=== PATIENT | male | born 1965 | race Caucasian/White ===

== ENCOUNTER 2017-11-26 10:42 | Emergency (ER) | payer OTHER ==
[~2017-11-26] VITALS: Ht 180.3 cm; Wt 89.4 kg
[~2017-11-26 10:42] MED LIST: ACEASPCAF PO; ALBU90OI INH; ALBU90OI6 INH; ALBU90OI61 INH; AMLO10 PO; AMLO5 PO; ASPI81CH PO; ASPI81EC; ASPI81EC PO; AZIT250 PO; AZIT500 PO; BUDE10.22 INH; BUTASPCAF PO; CEPH500; CIPR500 PO; CLIN300 PO; CLOP75 PO; CODACE30; CODACE30 PO; CODGUAEL PO; CRUTCH3 USE; CYCL10 PO; DOXY100 PO; ELIQUIS2.5 MG; FAMO40 PO; FEBU40TA; FEBU40TA PO; FLUSAL2505 IH; FLUT.05NI; GUAI600T33 PO; HCTZ; HYDACE10B PO; HYDACE5 PO; HYDACE5325 PO; HYDCHL50; IBUP600 PO; IBUP800 PO; ISOMON30 PO; KETO10 PO; LEVSOD100; LEVSOD125 PO; LEVSOD150 PO; LEVSOD75; LISI10; LISI10 PO; LISI5; LORA.5 PO; LORA1 PO; LOSA50; LOSA50 PO; LOVA40; LOVA40 PO; METO25; METO25ER; METO25ER PO; MULVITA PO; MULVITMIND PO; Mucinex600 MG PO; NAPR500 PO; NITR.4SL SL; OMEP20ER; OMEP40CA12 PO; OXYACE5T PO; OXYACE7.5T PO; PRAV20 PO; PRED10 PO; PRED20 PO; PROM25 PO; Prednisone20 MG PO; RANI150 PO; ROPI1 PO; RXALBOI INH; RXHYD5325 PO; SIMV20; SUCR1 PO; SULTRIDS PO; TIOT18 IH; TIOT18 INH; TOBDEXOPSU OP; TOBR.3OPSO OP; TRAM50 PO; TRIHYD5075 PO; UNKNOWN ANTIBIOTIC; VARE1 PO; Zithromax250 MG PO
== END 2017-11-26 14:24 | disposition left against medical advice (07) ==
LOC: ER 10:42
DX: Z53.21 Procedure and treatment not carried out due to patient leaving prior to being seen by health care provider (principal)

== ENCOUNTER 2018-05-31 02:19 | Emergency (ER) | payer OTHER ==
[~2018-05-31] VITALS: Ht 180.3 cm; Wt 93.4 kg
[~2018-05-31 02:19] MED LIST changes: +ALBU90OI61 PO; +AMLO10; -AMLO10 PO; +BUDE10.22; -BUDE10.22 INH
== END 2018-05-31 05:37 | disposition home or self-care (01) ==
LOC: ER 02:19
DX: M25.531 Pain in right wrist (principal); I10 Essential (primary) hypertension; I25.10 Atherosclerotic heart disease of native coronary artery without angina pectoris; I25.2 Old myocardial infarction; E03.9 Hypothyroidism, unspecified; E78.00 Pure hypercholesterolemia, unspecified; F17.200 Nicotine dependence, unspecified, uncomplicated; Z88.0 Allergy status to penicillin; Z91.012 Allergy to eggs; Z88.8 Allergy status to other drugs, medicaments and biological substances; Z79.899 Other long term (current) drug therapy; Z79.51 Long term (current) use of inhaled steroids; Z86.73 Personal history of transient ischemic attack (TIA), and cerebral infarction without residual deficits
CPT/HCPCS: 73110; J1885

== ENCOUNTER → 2018-06-02 | Outpatient (CLI) | payer OTHER ==
[~2018-06-02] MED LIST changes: -ALBU90OI61 PO; -AMLO10; +AMLO10 PO; -BUDE10.22; +BUDE10.22 INH; +Bactrim Ds Tab1 EACH PO; +HYDR1TAB94 PO; +SYNTHROID25 MCG PO; +Synthroid/Levo0.2 MG PO
[2018-06-03 11:29] LABS: Antinuclear Antibody Screen Negative (Negative)
[2018-06-04 14:55] LABS: Rheumatoid Factor, Serum Negative (Negative)
== END ==
LOC: LAB SHORT 10:10 → LAB EV 10:10
PROVIDERS: General Practice
DX: S41.101A Unspecified open wound of right upper arm, initial encounter (principal); R22.31 Localized swelling, mass and lump, right upper limb; M79.601 Pain in right arm
CPT/HCPCS: 85651; 86038; 86140; 86430; 87070; 87075; 87147; 87205

== ENCOUNTER 2018-06-03 20:39 | Emergency (ER) | payer OTHER ==
[~2018-06-03] VITALS: Ht 271.8 cm; Wt 93.0 kg
[~2018-06-03 20:39] MED LIST changes: -Bactrim Ds Tab1 EACH PO; -HYDR1TAB94 PO; -SYNTHROID25 MCG PO; -Synthroid/Levo0.2 MG PO
[2018-06-04] MEDS ORDERED: CLIN300 PO (22:13)
[2018-06-04] MEDS ORDERED: HYDR1TAB94 PO (22:13)
[2018-06-04] MEDS ORDERED: SYNTHROID25 MCG PO (22:15)
[2018-06-04] MEDS ORDERED: Synthroid/Levo0.2 MG PO (22:15)
[2018-06-04] MEDS ORDERED: TIOT18 INH (22:16)
[2018-06-04] MEDS ORDERED: ASPI81CH PO (22:17)
== END 2018-06-03 23:33 | disposition left against medical advice (07) ==
LOC: ER 20:39
DX: L03.113 Cellulitis of right upper limb (principal); E03.9 Hypothyroidism, unspecified; E78.5 Hyperlipidemia, unspecified; I10 Essential (primary) hypertension; I25.10 Atherosclerotic heart disease of native coronary artery without angina pectoris; F17.200 Nicotine dependence, unspecified, uncomplicated; Z88.0 Allergy status to penicillin; Z91.012 Allergy to eggs; Z88.8 Allergy status to other drugs, medicaments and biological substances; Z79.899 Other long term (current) drug therapy; Z79.51 Long term (current) use of inhaled steroids
CPT/HCPCS: 99281

== ENCOUNTER 2018-06-04 19:59 | Observation (INO) | payer OTHER ==
[~2018-06-04] VITALS: Ht 180.3 cm; Wt 94.5 kg
[2018-06-04] MEDS ORDERED: HYDR1TAB94 PO (22:13)
[2018-06-04] MEDS ORDERED: CLIN300 PO (22:13)
[2018-06-04] MEDS ORDERED: Synthroid/Levo0.2 MG PO (22:15)
[2018-06-04] MEDS ORDERED: SYNTHROID25 MCG PO (22:15)
[2018-06-04] MEDS ORDERED: TIOT18 INH (22:16)
[2018-06-04] MEDS ORDERED: ASPI81CH PO (22:17)
[2018-06-05 00:44] LABS: BASOPHILS ABSOLUTE AUTO 0.08 K/mm3 (0.00-0.23); BASOPHILS PERCENT AUTO 1 % (0-2); EOSINOPHILS ABSOLUTE AUTO 0.56 K/mm3 (0.00-0.68); EOSINOPHILS PERCENT AUTO 5 % (0-6); Hematocrit 42.5 % (37.0-53.0); Hemoglobin 14.2 g/dL (13.5-17.5); IMMATURE GRAN ABSOLUTE AUTO 0.03 K/mm3 (0.00-0.10); IMMATURE GRAN PERCENT AUTO 0 % (0-1); LYMPHOCYTES ABSOLUTE AUTO 2.66 K/mm3 (0.84-5.20); LYMPHOCYTES PERCENT AUTO 24 % (21-46); MONOCYTES ABSOLUTE AUTO 0.53 K/mm3 (0.16-1.47); MONOCYTES PERCENT AUTO 5 % (4-13); Mean Corpuscular HGB 33.1 pg (26.0-34.0); Mean Corpuscular HGB Conc 33.4 g/dL (31.5-36.5); Mean Corpuscular Volume 99 fL (80-100); Mean Platelet Volume 8.8 fL (9.1-12.4); NEUTROPHILS ABSOLUTE AUTO 7.03 K/mm3 (1.96-9.15); NEUTROPHILS PERCENT AUTO 65 % (41-73); Platelet Count 336 K/mm3 (150-400); RDW Coefficient Variation 12.9 % (11.7-14.2); RDW Standard Deviation 47.6 fL (35.1-46.3); Red Blood Cell Count 4.29 M/mm3 (4.30-5.90); White Blood Cell Count 10.89 K/mm3 (4.00-11.30)
[2018-06-05 00:56] LABS: Bun/Creatinine Ratio 14.4 (12.0-20.0); Calcium, Blood 8.9 mg/dL (8.5-10.1); Creatinine, Blood 1.53 mg/dL (0.60-1.20); Potassium, Blood 3.9 mmol/L (3.5-5.5)
[2018-06-06 05:58] LABS: BASOPHILS ABSOLUTE AUTO 0.02 K/mm3 (0.00-0.23); BASOPHILS PERCENT AUTO 0 % (0-2); EOSINOPHILS PERCENT AUTO 0 % (0-6); Hematocrit 41.6 % (37.0-53.0); Hemoglobin 13.6 g/dL (13.5-17.5); IMMATURE GRAN ABSOLUTE AUTO 0.04 K/mm3 (0.00-0.10); IMMATURE GRAN PERCENT AUTO 0 % (0-1); LYMPHOCYTES ABSOLUTE AUTO 1.08 K/mm3 (0.84-5.20); LYMPHOCYTES PERCENT AUTO 12 % (21-46); MONOCYTES ABSOLUTE AUTO 0.28 K/mm3 (0.16-1.47); MONOCYTES PERCENT AUTO 3 % (4-13); Mean Corpuscular HGB 32.4 pg (26.0-34.0); Mean Corpuscular HGB Conc 32.7 g/dL (31.5-36.5); Mean Corpuscular Volume 99 fL (80-100); Mean Platelet Volume 9.2 fL (9.1-12.4); NEUTROPHILS ABSOLUTE AUTO 7.72 K/mm3 (1.96-9.15); NEUTROPHILS PERCENT AUTO 85 % (41-73); Platelet Count 344 K/mm3 (150-400); RDW Coefficient Variation 13.2 % (11.7-14.2); RDW Standard Deviation 48.3 fL (35.1-46.3); White Blood Cell Count 9.14 K/mm3 (4.00-11.30)
[2018-06-06 06:21] LABS: Anion Gap 6 mmol/L (6-16); Blood Urea Nitrogen 21 mg/dL (8-24); Bun/Creatinine Ratio 16.8 (12.0-20.0); CO2, Blood 28 mmol/L (21-32); Calcium, Blood 7.7 mg/dL (8.5-10.1); Chloride, Blood 103 mmol/L (98-108); Creatinine, Blood 1.25 mg/dL (0.60-1.20); Glomerular Filtration Rate >60 (60-); Glucose, Blood 98 mg/dL (70-99); Potassium, Blood 4.2 mmol/L (3.5-5.5); Sodium, Blood 137 mmol/L (136-145); Vancomycin, Trough 15.7 ug/mL (5.0-10.0)
[2018-06-06] MEDS ORDERED: Bactrim Ds Tab1 EACH PO (09:01)
[2018-06-06] MEDS ORDERED: TIOT18 INH (10:43)
== END 2018-06-06 11:05 | disposition home or self-care (01) ==
LOC: ER 19:59 → SURS 06-05 03:24
PROVIDERS: Emergency Medicine; Internal Medicine; Orthopaedic Surgery
PROC: 0R9L0ZZ Drainage of Right Elbow Joint, Open Approach (ICD-10-PCS; principal; 2018-06-05 14:30)
DX: M00.9 Pyogenic arthritis, unspecified (principal); L03.113 Cellulitis of right upper limb; N17.9 Acute kidney failure, unspecified; E78.5 Hyperlipidemia, unspecified; I10 Essential (primary) hypertension; E03.9 Hypothyroidism, unspecified; F17.200 Nicotine dependence, unspecified, uncomplicated; Z88.0 Allergy status to penicillin; Z88.8 Allergy status to other drugs, medicaments and biological substances; Z79.82 Long term (current) use of aspirin; Z79.899 Other long term (current) drug therapy
CPT/HCPCS: 20600; 36415; 36416; 73201; 73221; 80048; 80202; 83605; 84550; 85025; 87040; 87071; 87075; 87205; 94760; 96360; 96361; 96365; 96366; 96375; 96376; 97110; 97165; 99285-25; G0378; G8987; G8988; G8989; J0360; J1100; J2250; J2370; J2405; J3010; J3370; J7030; J7050; J7120; Q9967

== ENCOUNTER 2018-06-08 16:40 | Emergency (ER) | payer OTHER ==
[~2018-06-08] VITALS: Ht 180.3 cm; Wt 92.0 kg
[~2018-06-08 16:40] MED LIST changes: +Bactrim Ds Tab1 EACH PO; +HYDR1TAB94 PO; +SYNTHROID25 MCG PO; +Synthroid/Levo0.2 MG PO
== END 2018-06-08 17:03 | disposition home or self-care (01) ==
LOC: ER 16:40
DX: A49.01 Methicillin susceptible Staphylococcus aureus infection, unspecified site (principal)
CPT/HCPCS: 99282

== ENCOUNTER 2019-03-31 12:58 | Emergency (ER) | payer OTHER | END 2019-03-31 13:45 | disposition left against medical advice (07) | LOC: ER 12:58 | DX: Z53.21 Procedure and treatment not carried out due to patient leaving prior to being seen by health care provider (principal) ==

== ENCOUNTER 2020-07-04 15:40 | Emergency (ER) | payer OTHER ==
[~2020-07-04] VITALS: Ht 180.3 cm; Wt 103.0 kg
[2020-07-04] MEDS ORDERED: ALLO100 PO (16:03)
[2020-07-04] MEDS ORDERED: EUTHYROX200 MC1 (16:03)
[2020-07-04] MEDS ORDERED: FURO40 PO (16:03)
[2020-07-04] MEDS ORDERED: ATOR20 PO (16:04)
[2020-07-04] MEDS ORDERED: CLIN150 PO (16:05)
[2020-07-04] MEDS ORDERED: Bactrim Ds Tab1 EACH PO (16:49)
[2020-07-04] MEDS ORDERED: HYDR1TAB94 PO (16:50)
== END 2020-07-04 17:10 | disposition home or self-care (01) ==
LOC: ER 15:40
DX: L02.213 Cutaneous abscess of chest wall (principal); I10 Essential (primary) hypertension; E03.9 Hypothyroidism, unspecified; E78.5 Hyperlipidemia, unspecified; Z86.73 Personal history of transient ischemic attack (TIA), and cerebral infarction without residual deficits; I25.10 Atherosclerotic heart disease of native coronary artery without angina pectoris; F17.210 Nicotine dependence, cigarettes, uncomplicated
CPT/HCPCS: 10160; 99282-25; A9270-GY

== ENCOUNTER 2022-06-18 07:04 | Emergency (ER) | payer OTHER ==
[~2022-06-18] VITALS: Ht 180.3 cm; Wt 86.2 kg
[~2022-06-18 07:04] MED LIST changes: +ALLO100 PO; +ATOR20 PO; +CLIN150 PO; +EUTHYROX200 MC1; +FURO40 PO
== END 2022-06-18 08:47 | disposition home or self-care (01) ==
LOC: ER 07:04
DX: S66.912A Strain of unspecified muscle, fascia and tendon at wrist and hand level, left hand, initial encounter (principal); E03.9 Hypothyroidism, unspecified; E78.5 Hyperlipidemia, unspecified; I10 Essential (primary) hypertension; I25.2 Old myocardial infarction; I25.10 Atherosclerotic heart disease of native coronary artery without angina pectoris; F17.210 Nicotine dependence, cigarettes, uncomplicated; W10.9XXA Fall (on) (from) unspecified stairs and steps, initial encounter; Z88.0 Allergy status to penicillin; Z91.018 Allergy to other foods; Z79.899 Other long term (current) drug therapy; Z86.73 Personal history of transient ischemic attack (TIA), and cerebral infarction without residual deficits
CPT/HCPCS: 73110

== ENCOUNTER → 2023-02-19 | Outpatient (CLI) | payer OTHER ==
[2023-02-19 12:03] LABS: Stool Occult Bld Immuno 1 Positive (NEGATIVE)
== END | disposition home or self-care (01) ==
LOC: LAB SHORT 09:00 → LAB 09:00
PROVIDERS: Internal Medicine
DX: R63.4 Abnormal weight loss (principal)
CPT/HCPCS: G0328

== ENCOUNTER 2025-01-07 07:50 | Day surgery (SDC) | payer OTHER ==
[~2025-01-07] VITALS: Ht 180.3 cm; Wt 82.2 kg
[~2025-01-07 07:50] MED LIST changes: +ACET500 PO; +ALBU2.5V5 INH; +ALBU8HFA2 INH; +ATOR40TA PO; +Amiodarone HCl200 MG PO; +Aspir 8181 MG PO; +BREYNA 160-4.10.3 GM INH; +DOCU100 PO; -EUTHYROX200 MC1; +EUTHYROX200 MC1 PO; +EUTHYROX50 MCG PO; +FURO20 PO; +GABA300 PO; +HYDMOR2 PO; +Isosorbide Mono30 MG PO; +LEVOTHYROXINE50 MC9 PO; +LOSARTAN POTAS100 MG PO; +Lactated Ringer's 1,000 ML IV ONE; +METO100ER PO; +METO25 PO; +NITROGLYCERIN0.4 M3 PO; +OMEP20ER PO; +Prilosec Otc20 MG PO; +SYMBICORT 16010.2 GM INH; +TOPROL XL200 MG PO; +Ventolin5 MG/1 ML INH
[2025-01-07] MEDS ORDERED: CeFAZolin Sodium 2,000 MG VIAL ONE (07:55)
[2025-01-07] MEDS ORDERED: Midazolam HCl 1MG / ML 2ML Vial ONE ×2 (08:07→09:46)
[2025-01-07] MEDS ORDERED: Lactated Ringer's 1,000 ML IV ONE (08:37)
[2025-01-07] MEDS ORDERED: FentaNYL Citrate 50 MCG/ML 2 ML Injection ONE (08:43)
[2025-01-07] MEDS ORDERED: propofoL 20 ML IV ONE (08:43)
[2025-01-07] MEDS ORDERED: Ketorolac Tromethamine 30mg Vial ONE (08:43)
[2025-01-07] MEDS ORDERED: Dexamethasone Sod Phos 10 MG/ML 1ML VIAL ONE (08:43)
[2025-01-07] MEDS ORDERED: Ondansetron HCl 2 MG / ML 2ML Vial ONE (08:43)
[2025-01-07] MEDS ORDERED: Clindamycin 900mg in D5W 50ML 50 ML IV ONE (09:42)
[2025-01-07] MEDS ORDERED: Bupivacaine 0.5% W/EPI 1:200000 SDV 30 ML Vial ONE (09:44)
--- NOTE | 2025-01-07 10:41 | NUR ---
01/07/25 1041 LUCAS SEARS SLIGHT INSPIRATORY WHEEZES NOTED T/O
[2025-01-07 10:48] VITALS: BP 146/86
--- NOTE | 2025-01-07 10:54 | NUR ---
01/07/25 1054 LUCAS SEARS SINCE PT HAD SLIGHT INSPIR WHEEZE IN PACU, WILL SEND PT HOME WITH INCEENTIVE SPIROME. CONTINUED WHEEZING HEART T/O
== END 2025-01-07 11:23 | disposition home or self-care (01) ==
LOC: ORSCSDS 07:50
PROVIDERS: Orthopaedic Surgery
PROC: 0YBF0ZZ Excision of Right Knee Region, Open Approach (ICD-10-PCS; principal; 2025-01-07 09:15)
DX: R22.41 Localized swelling, mass and lump, right lower limb (principal); M17.11 Unilateral primary osteoarthritis, right knee; I25.10 Atherosclerotic heart disease of native coronary artery without angina pectoris; J44.9 Chronic obstructive pulmonary disease, unspecified; I10 Essential (primary) hypertension; K21.9 Gastro-esophageal reflux disease without esophagitis; Z86.73 Personal history of transient ischemic attack (TIA), and cerebral infarction without residual deficits; E78.5 Hyperlipidemia, unspecified; F17.210 Nicotine dependence, cigarettes, uncomplicated; Z79.82 Long term (current) use of aspirin; Z79.899 Other long term (current) drug therapy
CPT/HCPCS: J0690; J1100; J1885; J2250; J2405; J2704; J3010; J7120

== ENCOUNTER 2025-02-01 18:16 | Emergency (ER) | payer OTHER ==
[~2025-02-01] VITALS: Ht 180.3 cm; Wt 82.1 kg
[~2025-02-01 18:16] MED LIST changes: -Lactated Ringer's 1,000 ML IV ONE
[2025-02-01] MEDS ORDERED: Nitroglycerin 0.4 MG SUBL SL ONE (18:40)
[2025-02-01 18:47] LABS: BASOPHILS ABSOLUTE AUTO 0.05 K/mm3 (0.00-0.23); BASOPHILS PERCENT AUTO 1 % (0-2); EOSINOPHILS ABSOLUTE AUTO 0.11 K/mm3 (0.00-0.68); EOSINOPHILS PERCENT AUTO 2 % (0-6); Hematocrit 43.3 % (37.0-53.0); Hemoglobin 14.7 g/dL (13.5-17.5); IMMATURE GRAN ABSOLUTE AUTO 0.03 K/mm3 (0.00-0.10); IMMATURE GRAN PERCENT AUTO 0 % (0-1); LYMPHOCYTES ABSOLUTE AUTO 2.26 K/mm3 (0.84-5.20); LYMPHOCYTES PERCENT AUTO 31 % (21-46); MONOCYTES ABSOLUTE AUTO 0.62 K/mm3 (0.16-1.47); MONOCYTES PERCENT AUTO 8 % (4-13); Mean Corpuscular HGB 35.5 pg (26.0-34.0); Mean Corpuscular HGB Conc 33.9 g/dL (31.5-36.5); Mean Corpuscular Volume 105 fL (80-100); Mean Platelet Volume 9.3 fL (9.1-12.4); NEUTROPHILS ABSOLUTE AUTO 4.32 K/mm3 (1.96-9.15); NEUTROPHILS PERCENT AUTO 58 % (41-73); Platelet Count 316 K/mm3 (150-400); RDW Standard Deviation 46.6 fL (35.1-46.3); Red Blood Cell Count 4.14 M/mm3 (4.30-5.90); White Blood Cell Count 7.39 K/mm3 (4.00-11.30)
[2025-02-01 19:03] LABS: International Normalized Ratio 0.87; Prothrombin Time Results 9.4 Sec (9.7-11.5)
[2025-02-01 19:05] LABS: Albumin, Blood 3.3 g/dL (3.4-5.0); Bilirubin, Total 0.4 mg/dL (0.1-1.0); Bun/Creatinine Ratio 25.3 (12.0-20.0); Calcium, Blood 8.7 mg/dL (8.5-10.1); Creatinine, Blood 1.58 mg/dL (0.60-1.20); Globulin, Blood 3.3 g/dL (2.2-4.0); Potassium, Blood 4.4 mmol/L (3.5-5.5); Total Protein, Blood 6.6 g/dL (6.4-8.2)
[2025-02-01] MEDS ORDERED: FentaNYL Citrate 50 MCG/ML 2 ML Injection IV ONE ×2 (19:20→20:05)
[2025-02-01 19:45] VITALS: BP 194/141
== END 2025-02-01 21:24 | disposition left against medical advice (07) ==
LOC: ER 18:16
PROVIDERS: Student in an Organized Health Care Education/Training Program
DX: R07.89 Other chest pain (principal); F10.929 Alcohol use, unspecified with intoxication, unspecified; Y90.8 Blood alcohol level of 240 mg/100 ml or more; S00.81XA Abrasion of other part of head, initial encounter; S50.312A Abrasion of left elbow, initial encounter; S40.812A Abrasion of left upper arm, initial encounter; E03.9 Hypothyroidism, unspecified; E78.5 Hyperlipidemia, unspecified; I10 Essential (primary) hypertension; J43.9 Emphysema, unspecified; I25.10 Atherosclerotic heart disease of native coronary artery without angina pectoris; I25.2 Old myocardial infarction; K21.9 Gastro-esophageal reflux disease without esophagitis; F17.210 Nicotine dependence, cigarettes, uncomplicated; Z53.29 Procedure and treatment not carried out because of patient's decision for other reasons; Z95.1 Presence of aortocoronary bypass graft; Z86.73 Personal history of transient ischemic attack (TIA), and cerebral infarction without residual deficits; Z86.718 Personal history of other venous thrombosis and embolism; Z88.0 Allergy status to penicillin; Z91.012 Allergy to eggs; Z88.8 Allergy status to other drugs, medicaments and biological substances; Z79.82 Long term (current) use of aspirin; Z79.51 Long term (current) use of inhaled steroids; Z79.890 Hormone replacement therapy; Z79.899 Other long term (current) drug therapy; Z59.89 Other problems related to housing and economic circumstances; W10.9XXA Fall (on) (from) unspecified stairs and steps, initial encounter
CPT/HCPCS: 70450; 71045; 71275; 72125; 74174; 80053; 80320; 84484; 85025; 85379; 85610; 85730; 93005; 93010; 96374; 96376; 99285-25; A9270; J3010; Q9967